=== PATIENT | male | born 1930 | race Caucasian/White ===

== ENCOUNTER 2016-11-24 17:10 | Inpatient (IN) | payer MEDICARE, BC, OTHER ==
[~2016-11-24] VITALS: Ht 165.1 cm; Wt 77.2 kg
[2016-11-24] MEDS ORDERED: FUROSEMIDE 100 MG/10 ML VIAL (J1940) IV ONE (17:15)
[2016-11-24 17:30] LABS: ABG BASE EXCESS 1.1 (-2.0-2.0); ABG HCO3 31.1 MEQ/L (22.0-26.0); ABG PARTIAL PRESSURE O2 90.4 mmHg (75.0-100.0); ABG STANDARD HCO3 25.4 MEQ/L (22.0-26.0); ABG TOTAL CO2 33.5 MEQ/L (23.0-31.0); ABG pH (ARTERIAL) 7.213 UNITS (7.350-7.450)
[2016-11-24] MEDS ORDERED: NITROGLYCERIN 2% OINT 1 GM *U/D* PKT TOP ONE (17:30)
[2016-11-24] MEDS ORDERED: FUROSEMIDE 100 MG/10 ML VIAL (J1940) IM ONE (17:30)
[2016-11-24] MEDS ORDERED: CLOP75TA2 PO (17:47)
[2016-11-24] MEDS ORDERED: LORA10TA2 PO (17:47)
[2016-11-24] MEDS ORDERED: DONEPEZIL (17:53)
[2016-11-24] MEDS ORDERED: FAMO1TAB11 PO (17:53)
[2016-11-24] MEDS ORDERED: MAGN400T5 PO (17:53)
[2016-11-24] MEDS ORDERED: SYST1SOL OU (17:53)
[2016-11-24] MEDS ORDERED: VITA100067 PO (17:53)
[2016-11-24] MEDS ORDERED: ECOT81TA5 PO (17:53)
[2016-11-24] MEDS ORDERED: ACET-683 PO (17:53)
--- NOTE | 2016-11-24 18:01 | REP ---
Chest two views HISTORY: Cough Comparison: 10/31/2014 Increased density is present in the lower lobes consistent with bibasilar atelectasis or infiltrates. Small bilateral pleural effusions are present greater on the right than on the left. The heart is normal in size. The pulmonary vasculature is normal in appearance. The bony structure is intact. IMPRESSION: 1. Bibasilar atelectasis or infiltrates 2. Small bilateral pleural effusions greater on the right than on the left. Signed by Jeronimo Moulton MD 11/24/2016 05:53 P
[2016-11-24 18:14] LABS: BASO % 0.2 % (0.0-1.0); EOS # 0.1 K/mm3 (0.0-0.50); EOS % 1.2 % (0.0-3.0); LARGE UNSTAINED CELL # 0.1 K/mm3 (0.0-0.4); LARGE UNSTAINED CELL % 0.5 % (0.0-4.0); LYMPH # 0.8 K/mm3 (1.5-4.5); LYMPH % 7.6 % (24.0-44.0); MEAN CORPUSCULAR HEMOGLOBIN 33.7 pg (27.0-33.0); MEAN CORPUSCULAR HGB CONC 31.8 g/dl (32.0-36.5); MEAN CORPUSCULAR VOLUME 106.1 fl (80.0-96.0); MONO # 0.5 K/mm3 (0.0-0.8); MONO % 4.8 % (0.0-5.0); NEUTROPHILS # 8.4 K/mm3 (1.8-7.7); NEUTROPHILS % 85.7 % (36.0-66.0); PLATELET COUNT, AUTOMATED 173 k/mm3 (150-450); RED CELL DISTRIBUTION WIDTH 13.3 % (11.5-14.5); WHITE BLOOD COUNT 9.8 K/mm3 (4.0-10.0)
[2016-11-24 18:39] LABS: ANION GAP 3 MEQ/L (8-16); BLOOD UREA NITROGEN 23 MG/DL (7-18); CALCIUM LEVEL 8.9 MG/DL (8.8-10.2); CARBON DIOXIDE LEVEL 38 MEQ/L (21-32); CHLORIDE LEVEL 105 MEQ/L (98-107); GLOMERULAR FILTRATION RATE > 60.0 (>35); GLUCOSE, FASTING 150 MG/DL (83-110); POTASSIUM SERUM 4.1 MEQ/L (3.5-5.1); SODIUM LEVEL 146 MEQ/L (136-145)
[2016-11-24 18:41] LABS: ABG BASE EXCESS 4.1 (-2.0-2.0); ABG HCO3 32.6 MEQ/L (22.0-26.0); ABG PARTIAL PRESSURE CO2 68.5 mmHg (35.0-45.0); ABG PARTIAL PRESSURE O2 99.6 mmHg (75.0-100.0); ABG STANDARD HCO3 28.1 MEQ/L (22.0-26.0); ABG TOTAL CO2 34.7 MEQ/L (23.0-31.0); ABG pH (ARTERIAL) 7.295 UNITS (7.350-7.450)
[2016-11-24 18:43] LABS: ALBUMIN 3.2 GM/DL (3.2-5.2); ALBUMIN/GLOBULIN RATIO 0.84 (1.00-1.93); BILIRUBIN,DIRECT 0.2 MG/DL (0.0-0.2); BILIRUBIN,TOTAL 0.4 MG/DL (0.2-1.0)
[2016-11-24] MEDS ORDERED: PIPERACILLIN/TAZOBACTAM SOD 4.5 GM in D5W MINI-BAG PLUS 50 ML IV ONE (19:00)
[2016-11-24] MEDS ORDERED: ARIC1TAB2 PO (19:40)
[2016-11-24] MEDS ORDERED: SENN1TAB10 PO (19:40)
[2016-11-24] MEDS ORDERED: VITA500T3 PO (19:40)
[2016-11-24] MEDS ORDERED: VITA400C5 PO (19:40)
[2016-11-24] MEDS ORDERED: B COTAB3 PO (19:40)
[2016-11-24] MEDS ORDERED: ASPI81TAEC PO (19:40)
[2016-11-24] MEDS ORDERED: VITA100066 PO (19:40)
[2016-11-24] MEDS ORDERED: DOCU100C16 PO (19:40)
[2016-11-24] MEDS ORDERED: ACET650T3 PO (19:40)
[2016-11-24] MEDS ORDERED: BISACODYL 10 MG SUPP PR PRN (20:15)
[2016-11-24] MEDS ORDERED: IPRATROPIUM 0.5MG/ALBUTEROL 2.5MG INH SOL UD 3ML (DUONEB)(J7620) NEB PRN (20:15)
[2016-11-24] MEDS ORDERED: POLYVINYL ALCOHOL OPHTH SOLN 15 ML(LIQUITEARS) OU PRN (20:15)
[2016-11-24] MEDS: HEPARIN SOD (PORCINE) 5000 UNITS/ML VIAL SC SCH (21:33)
--- NOTE | 2016-11-24 21:35 | HPE ---
DATE OF ADMISSION: 11/24/2016 PRIMARY CARE PROVIDER: RAKESH Hernandez CHIEF COMPLAINT: Shortness of breath and lethargy. HISTORY OF PRESENT ILLNESS: This is an 86-year-old male patient with underlying medical history of advanced dementia with aspiration. Is supposed to be on pureed diet with nectar thickened, aortic stenosis, history of left frontal cerebrovascular accident (CVA), right eye blindness, gastroesophageal reflux disease (GERD), history of transaminitis. As per family, yesterday the patient was eating some potato wedges, subsequently had a coughing spell and during the course of the night, the patient had shortness of breath and wheezy, and during the course of the day today, the patient was more sleepy than usual and with significant worsening shortness of breath, subsequently EMS was called to bring the patient to the hospital. Baseline the patient is wheelchair bound, with minimum verbal, with advanced dementia. As per family, the patient has been having swallowing problems and speech problem for the past year or two already and recently the patient has been getting worsening delirium at night with agitations and the patient's dementia is certainly getting worse as per family. Further history from patient is not possible. The patient denies any chest pain. No further history possible. Shearer catheter was placed in the ED. As per family, the patient has been refusing pureed food as well as nectar thickened fluids. Subsequently, regular fluids given to the patient. The patient also had a burger today for lunch. ALLERGIES: No known drug allergies. PAST MEDICAL HISTORY: Aortic stenosis. History of left frontal CVA. Right eye blindness. GERD. Transaminitis. PAST SURGICAL HISTORY: Bilateral inguinal hernia repair many years ago. FAMILY HISTORY: Noncontributory. SOCIAL HISTORY: Quit smoking in 1970s, does not drink alcoholic beverages. Lives at home with his who has been taking care of the patient. REVIEW OF SYSTEMS: Limited. The patient denies any chest pain. All other review of systems not possible. The patient currently is on BiPAP, pretty lethargic. HOME MEDICATIONS: - acetaminophen 650 mg by mouth twice a day - aspirin 81 mg by mouth daily - vitamin B complex by mouth daily - vitamin D 1000 units by mouth every pm - Plavix 75 mg by mouth every pm - vitamin B12 500 mcg by mouth every pm - Colace 100 mg by mouth every pm - Aricept 10 mg by mouth every pm - Pepcid 20 mg by mouth daily - loratadine 10 mg by mouth every pm - Systane eye drop four times a day as needed - senna 8.6 by mouth every pm PHYSICAL EXAMINATION: VITAL SIGNS: Temperature 97.7, pulse 88, respirations 20, blood pressure 184/63, pulse oximetry 90% on BiPAP. GENERAL: The patient lethargic, but arousable. Follows simple commands. HEENT: Normocephalic, atraumatic. PULMONARY: Diffuse rhonchi. CARDIAC: Regular, S1, S2. ABDOMEN: Soft, nontender, nondistended. Positive bowel sounds. EXTREMITIES: Trace edema bilateral lower extremities. NEUROLOGICAL: Cranial nerves II through XII grossly intact. Able to move all four extremities. LABORATORY: WBC 9.8. Hemoglobin and hematocrit 12.2/38.5, platelet 173. Chemistry: Sodium 146, potassium 4.1, chloride 105, bicarbonate 38, BUN 23, creatinine 0.9, lactic acid 1.6. X-ray shows bilateral pulmonary infiltrates. ASSESSMENT AND PLAN: This is an 86-year-old male patient with underlying medical history of aortic stenosis, left frontal CVA, right eye blindness, GERD, advanced dementia, transaminitis, history of aspiration, admitted for hypoxic hypercarbic respiratory failure. PROBLEM LIST: 1. Hypoxic hypercarbic respiratory failure secondary to aspiration pneumonia. The patient on Zosyn. X-ray appreciated. Followup cultures. C-reactive protein. Rule out CHF. The patient does not appear to be fluid overloaded, but was given Lasix. Will get echocardiogram to see ejection fraction history of grade 2 diastolic dysfunction. Will further assess. Continue Zosyn. Followup cultures. The patient on BiPAP, was 12/6, 50% FiO2. Will repeat ABGs. Advanced care planning. 2. Aspiration. Speech and swallow evaluation. Nothing by mouth for now. Holding oral medications. Pending speech and swallow. Code status has been discussed with the family. The family would like to wait until speech and swallow to decide regarding tube feeding. 3. History of CVA. Holding Plavix. Will continue aspirin if patient tolerates. Holding all other medications. Monitor blood pressure. 4. Hypertension. Likely secondary to acute stress. Holding oral medication. Will give blood pressure medication if patient needs to. 5. GERD. Continue proton pump inhibitor (PPI). 6. History of transaminitis. Currently resolved. 7. Advanced dementia. Supportive care. Poor overall prognosis. 8. Deep venous thrombosis (DVT) prophylaxis. Heparin subcutaneous. 9. Constipation. Dulcolax rectal suppository. DISPOSITION: Case discussed with Dr. Rollins. Poor overall prognosis. Patient DO NOT RESUSCITATE (DNR), DO NOT INTUBATE (DNI). Advanced care planning. 30 minutes spent discussing with the family, the medical order of life-sustaining treatment (MOLST) form and the prognosis of the patient. The patient is currently DNR, DNI with a trial of BiPAP. Family still deciding regarding tube feeding in the event the patient cannot tolerate anything oral. The family is aware of the poor prognosis. Time spent 30 minutes for advanced care planning.
[2016-11-25] VITALS (9 sets, daily range): BP systolic 92–147; BP diastolic 50–68; O2SAT 92–98
[2016-11-25] MEDS: IPRATROPIUM 0.5MG/ALBUTEROL 2.5MG INH SOL UD 3ML (DUONEB)(J7620) NEB SCH ×4 (01:46→19:25)
[2016-11-25] MEDS: PIPERACILLIN/TAZOBACTAM SOD 3.375 GM in D5W MINI-BAG PLUS 50 ML IV SCH ×3 (02:59→19:00)
[2016-11-25 04:41] LABS: MEAN CORPUSCULAR HEMOGLOBIN 33.9 pg (27.0-33.0); MEAN CORPUSCULAR HGB CONC 32.9 g/dl (32.0-36.5); MEAN CORPUSCULAR VOLUME 102.9 fl (80.0-96.0); WHITE BLOOD COUNT 11.3 K/mm3 (4.0-10.0)
[2016-11-25 04:55] LABS: ALBUMIN 2.8 GM/DL (3.2-5.2); ALBUMIN/GLOBULIN RATIO 0.72 (1.00-1.93); ALKALINE PHOSPHATASE 48 U/L (45-117); ALT/SGPT 13 U/L (12-78); ANION GAP 6 MEQ/L (8-16); AST/SGOT 16 U/L (15-37); BILIRUBIN,TOTAL 0.6 MG/DL (0.2-1.0); BLOOD UREA NITROGEN 20 MG/DL (7-18); CALCIUM LEVEL 8.1 MG/DL (8.8-10.2); CARBON DIOXIDE LEVEL 38 MEQ/L (21-32); CHLORIDE LEVEL 103 MEQ/L (98-107); CREATININE FOR GFR 1.06 MG/DL (0.70-1.30); GLOMERULAR FILTRATION RATE > 60.0 (>35); GLUCOSE, FASTING 118 MG/DL (83-110); MAGNESIUM LEVEL 1.7 MG/DL (1.8-2.4); POTASSIUM SERUM 3.8 MEQ/L (3.5-5.1); SODIUM LEVEL 147 MEQ/L (136-145); TOTAL PROTEIN 6.7 GM/DL (6.4-8.2)
[2016-11-25 05:59] LABS: ABG BASE EXCESS 10.2 (-2.0-2.0); ABG HCO3 35.8 MEQ/L (22.0-26.0); ABG PARTIAL PRESSURE CO2 53.3 mmHg (35.0-45.0); ABG PARTIAL PRESSURE O2 188.5 mmHg (75.0-100.0); ABG TOTAL CO2 37.4 MEQ/L (23.0-31.0); ABG pH (ARTERIAL) 7.445 UNITS (7.350-7.450)
[2016-11-25] MEDS: HEPARIN SOD (PORCINE) 5000 UNITS/ML VIAL SC SCH ×3 (06:01→22:11)
[2016-11-25] MEDS: ASPIRIN 81 MG ENTERIC TAB PO SCH (09:00)
--- NOTE | 2016-11-25 20:49 | ECGEPIP ---
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 Electronically Signed On 11-25-2016 20:49:48 EDT by Octavio Tavares
--- NOTE | 2016-11-25 20:52 | ECGEPIP ---
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
[2016-11-26] VITALS: BP 145/65
[2016-11-26] MEDS: IPRATROPIUM 0.5MG/ALBUTEROL 2.5MG INH SOL UD 3ML (DUONEB)(J7620) NEB SCH ×4 (01:17→20:00)
[2016-11-26 02:00] VITALS: BP 110/58
[2016-11-26] MEDS: PIPERACILLIN/TAZOBACTAM SOD 3.375 GM in D5W MINI-BAG PLUS 50 ML IV SCH ×3 (03:38→18:50)
[2016-11-26 04:00] VITALS: BP 132/62
[2016-11-26 05:25] LABS: MEAN CORPUSCULAR HEMOGLOBIN 33.9 pg (27.0-33.0); MEAN CORPUSCULAR HGB CONC 33.4 g/dl (32.0-36.5); MEAN CORPUSCULAR VOLUME 101.7 fl (80.0-96.0); RED CELL DISTRIBUTION WIDTH 13.3 % (11.5-14.5); WHITE BLOOD COUNT 5.7 K/mm3 (4.0-10.0)
[2016-11-26 05:52] LABS: ALBUMIN 2.7 GM/DL (3.2-5.2); ALBUMIN/GLOBULIN RATIO 0.79 (1.00-1.93); ALKALINE PHOSPHATASE 46 U/L (45-117); ALT/SGPT 13 U/L (12-78); ANION GAP 4 MEQ/L (8-16); AST/SGOT 15 U/L (15-37); BILIRUBIN,TOTAL 0.7 MG/DL (0.2-1.0); BLOOD UREA NITROGEN 24 MG/DL (7-18); CALCIUM LEVEL 7.9 MG/DL (8.8-10.2); CARBON DIOXIDE LEVEL 37 MEQ/L (21-32); CHLORIDE LEVEL 105 MEQ/L (98-107); CREATININE FOR GFR 0.86 MG/DL (0.70-1.30); GLOMERULAR FILTRATION RATE > 60.0 (>35); GLUCOSE, FASTING 83 MG/DL (83-110); MAGNESIUM LEVEL 1.8 MG/DL (1.8-2.4); POTASSIUM SERUM 4.1 MEQ/L (3.5-5.1); SODIUM LEVEL 146 MEQ/L (136-145); TOTAL PROTEIN 6.1 GM/DL (6.4-8.2)
--- NOTE | 2016-11-26 05:58 | ECGEPIP ---
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
[2016-11-26 06:00] VITALS: BP 129/59
[2016-11-26] MEDS: HEPARIN SOD (PORCINE) 5000 UNITS/ML VIAL SC SCH ×3 (06:20→20:52)
[2016-11-26 08:00] VITALS: BP 139/61
[2016-11-26] MEDS: ASPIRIN 81 MG ENTERIC TAB PO SCH (11:27)
[2016-11-26] MEDS: D5W/0.45% SODIUM CHLORIDE 1,000 ML IV SCH ×2 (11:27→20:54)
[2016-11-26 12:00] VITALS: BP 127/56
[2016-11-27] MEDS: IPRATROPIUM 0.5MG/ALBUTEROL 2.5MG INH SOL UD 3ML (DUONEB)(J7620) NEB SCH ×4 (02:00→19:40)
[2016-11-27] MEDS: CIPROFLOXACIN 500 MG TAB PO SCH ×2 (05:32→17:44)
[2016-11-27] MEDS: HEPARIN SOD (PORCINE) 5000 UNITS/ML VIAL SC SCH (05:33)
[2016-11-27 06:00] VITALS: BP 154/65
[2016-11-27] MEDS ORDERED: metroNIDAZOLE (FLAGYL) 500 MG TAB PO SCH (06:00)
[2016-11-27 06:18] LABS: MEAN CORPUSCULAR HEMOGLOBIN 33.4 pg (27.0-33.0); MEAN CORPUSCULAR HGB CONC 32.7 g/dl (32.0-36.5); MEAN CORPUSCULAR VOLUME 102.2 fl (80.0-96.0); RED CELL DISTRIBUTION WIDTH 13.2 % (11.5-14.5); WHITE BLOOD COUNT 6.7 K/mm3 (4.0-10.0)
[2016-11-27 06:54] LABS: ALBUMIN 2.6 GM/DL (3.2-5.2); ALBUMIN/GLOBULIN RATIO 0.67 (1.00-1.93); ALKALINE PHOSPHATASE 42 U/L (45-117); ALT/SGPT 14 U/L (12-78); ANION GAP 3 MEQ/L (8-16); AST/SGOT 20 U/L (15-37); BILIRUBIN,TOTAL 0.6 MG/DL (0.2-1.0); BLOOD UREA NITROGEN 24 MG/DL (7-18); CALCIUM LEVEL 8.4 MG/DL (8.8-10.2); CARBON DIOXIDE LEVEL 37 MEQ/L (21-32); CHLORIDE LEVEL 104 MEQ/L (98-107); CREATININE FOR GFR 0.77 MG/DL (0.70-1.30); GLOMERULAR FILTRATION RATE > 60.0 (>35); GLUCOSE, FASTING 89 MG/DL (83-110); MAGNESIUM LEVEL 1.9 MG/DL (1.8-2.4); POTASSIUM SERUM 3.9 MEQ/L (3.5-5.1); SODIUM LEVEL 144 MEQ/L (136-145); TOTAL PROTEIN 6.5 GM/DL (6.4-8.2)
--- NOTE | 2016-11-27 09:11 | IPN ---
DATE: This is an 86-year-old gentleman seen at bedside. He is pleasantly confused. No pertinent complaints. No overnight issues. His brother is present at bedside and we did have a discussion regarding the patient's issues with aspirating and likely recurrent pneumonia. OBJECTIVE: Temperature 98.3, pulse 62, respiratory rate 89, blood pressure (BP) 127/56, SPO2 is 95% on 4 liters. General: The patient appears to be in no acute distress. HEENT: Unremarkable. Lungs: Diminished bibasilar breath sounds. Heart: Regular rate and rhythm. Abdomen: Soft. Extremities: No edema. No calf tenderness. LABORATORIES: White count 6.7, hemoglobin 11.4, platelets 153,000. Sodium 144, potassium 3.9, chloride 104, bicarb 37, anion gap 3, BUN is 24, creatinine is 0.77, glucose is 89, magnesium 1.9, AST 20, ALT 14, alkaline phosphatase 42. ASSESSMENT/PLAN: 1. Aspiration pneumonia. Continue with antibiotics. Blood cultures were negative. We are to have a kristal discussion with the family today regarding advanced directives. My understanding is that they would not at this point want a feeding tube placed. They understand that Mr. Monk is at risk for continued aspiration and complications. 2. Advanced dementia. Will frame the discussion regarding end-of-life decisions as outlined above. 3. History of CVA. Will continue on aspirin. Holding his Plavix. Monitor his blood pressure. 4. Hypertension. Will continue to follow 5. Gastroesophageal reflux disease (GERD). Stable on proton pump inhibitor (PPI). 6. History of transaminitis, resolved. 7. Advanced dementia as outlined. 8. Bowel regimen. 9. Deep vein thrombosis (DVT) prophylaxis, subcutaneous heparin. DISPOSITION: The patient remains DO NOT RESUSCITATE (DNR)/DO NOT INTUBATE (DNI). Advanced care planning will be discussed again with the family present to determine whether or not we need to consider comfort measures only ([facility]) and home with hospice.
[2016-11-27] MEDS: ASPIRIN 81 MG ENTERIC TAB PO SCH (10:09)
[2016-11-27] MEDS ORDERED: HYOSCYAMINE SULFATE 0.125 MG SUBL TABLET SL PRN (12:15)
[2016-11-27] MEDS ORDERED: MORPHINE 10MG/0.5ML ORAL CONCENTRATE SOLUTION U/D SL PRN (12:15)
[2016-11-27] MEDS ORDERED: ACETAMINOPHEN TAB 650MG DOSE (2X325MG) PO PRN (12:15)
[2016-11-27] MEDS ORDERED: LORazepam 1 MG TAB PO PRN (12:15)
[2016-11-27] MEDS ORDERED: MORPHINE SULFATE ORAL SOLN 10 MG/5 ML UD SL PRN (12:17)
--- NOTE | 2016-11-27 12:24 | IPN ---
DATE: 11/27/2016 I did have an opportunity to have a follow-up conversation with the patient's who is the healthcare proxy and two daughters who are nurses who were present at bedside as well. We reviewed the patient's labs, swallow evaluation and had a discussion regarding where we are at with end-of-life decisions. The discussion did include updating the medical orders for life-sustaining treatment (MOLST) form to include DO NOT RESUSCITATE (DNR)/DO NOT INTUBATE (DNI), comfort measures only, do not send to hospital unless symptoms or pain becomes too severe to control at home, and no feeding tube, no IV fluids. Antibiotic use is to be determined based on the need. We did discuss perhaps switching him to an oral antibiotic to help suppress the infection with the aspiration pneumonia with the goal of trying to get him home next week, perhaps Tuesday or Tuesday with hospice. There will still need to be some coordination at the beginning of the week, perhaps on Tuesday, since this is a holiday weekend, and the goal was to try to get him home with hospice on Tuesday. He will likely need the prescriptions to be sent in to include the hospice medications as well as oral antibiotic. We did discuss his home medications; in particular, Plavix and aspirin, which I did advocate that we go ahead and stop any other medications, although Tylenol might be advisable if he should develop fever and need to be treated for symptoms of fever. All questions were answered at bedside. MOLST form was updated, signed and placed on the chart. Orders will be updated to reflect comfort measures only. Time spent with the family was 13 minutes.
[2016-11-28] MEDS: IPRATROPIUM 0.5MG/ALBUTEROL 2.5MG INH SOL UD 3ML (DUONEB)(J7620) NEB SCH ×4 (02:00→19:59)
[2016-11-28] MEDS: CIPROFLOXACIN 500 MG TAB PO SCH ×2 (05:15→18:34)
[2016-11-28] MEDS: SENNA 8.6 MG TAB (SENOKOT) PO SCH ×2 (10:55→21:00)
[2016-11-29] MEDS: IPRATROPIUM 0.5MG/ALBUTEROL 2.5MG INH SOL UD 3ML (DUONEB)(J7620) NEB SCH ×4 (01:23→19:07)
[2016-11-29] MEDS: CIPROFLOXACIN 500 MG TAB PO SCH ×2 (05:57→18:27)
[2016-11-29] MEDS: SENNA 8.6 MG TAB (SENOKOT) PO SCH ×2 (08:37→20:00)
[2016-11-30] MEDS: CIPROFLOXACIN 500 MG TAB PO SCH ×2 (05:20→17:35)
[2016-11-30] MEDS: IPRATROPIUM 0.5MG/ALBUTEROL 2.5MG INH SOL UD 3ML (DUONEB)(J7620) NEB SCH ×4 (08:00→20:11)
[2016-11-30] MEDS: SENNA 8.6 MG TAB (SENOKOT) PO SCH ×2 (08:15→20:26)
[2016-12-01] MEDS: CIPROFLOXACIN 500 MG TAB PO SCH (05:09)
[2016-12-01] MEDS ORDERED: CIPR-249 PO (08:20)
[2016-12-01] MEDS: SENNA 8.6 MG TAB (SENOKOT) PO SCH (09:17)
[2016-12-01] MEDS ORDERED: LORA0.5T11 PO (09:37)
[2016-12-01] MEDS ORDERED: HYOS125TA PO (09:37)
[2016-12-01] MEDS ORDERED: MORP20SO3 PO (09:37)
--- NOTE | 2016-12-01 19:04 | DSES ---
DATE OF ADMISSION: 11/24/2016 DATE OF DISCHARGE: 12/01/2016 DISCHARGE DIAGNOSIS: Aspiration pneumonia. SECONDARY DIAGNOSES: 1. Advanced dementia. 2. History of cerebrovascular accident. 3. Hypertension. 4. Gastroesophageal reflux disease. 5. Hepatitis. 6. Constipation. HOSPITAL COURSE: Patient is an 86-year-old man who initially presented with aspiration pneumonia. He was admitted to the medical service and treated aggressively with antibiotics. Lengthy discussions were had with the patient, who had limited ability to understand his situation. Eventually the patient and the family all elected for comfort measures only and for the DO NOT RESUSCITATE, DO NOT INTUBATE status. Patient was evaluated by hospice and was accepted into home hospice. At this time the patient is being discharged home with hospice. SUBJECTIVE: Today the patient reports he is feeling well and has no complaints. He is enjoying his breakfast and is eager to go home. PHYSICAL EXAMINATION: Deferred as the patient is on comfort measures only. No recent laboratory studies or imaging. ASSESSMENT AND PLAN: This is an 86-year-old man with advanced dementia who had been treated for aspiration pneumonia. He is in the process of completing a course of antibiotics for his aspiration pneumonia. He did improve back to his practical baseline; however, he is still a high aspiration risk. Knowing this, the patient and family have elected for comfort measures only and home hospice, which has been established. When I visited the bedside this morning, all questions were answered to the patient's and family's satisfaction. They understand hospice, and that the patient will not be brought back to the hospital, and that they will contact hospice should they have any problems. DISPOSITION: The patient is being discharged home with hospice. His activity is as tolerated. His diet is as tolerated. He is to followup with home hospice today. He is DO NOT RESUSCITATE, DO NOT INTUBATE, comfort measures only. MEDICATION AT THE TIME OF DISCHARGE: - ciprofloxacin 500 mg by mouth twice a day for 3 additional days - hyoscyamine 0.125 mg every 4 hours as needed for terminal secretions - lorazepam 0.5 mg every 4 hours as needed for anxiety or agitation - morphine sulfate 0.25-1 mL every 2 hours as needed for pain or dyspnea - acetaminophen extended release 650 mg twice a day - docusate 100 mg every evening - Pepcid 20 mg daily - loratadine 10 mg every evening - Systane eye drops one drop each eye four times daily as needed for dry eyes - Senalax 8.6 mg, four tablets every evening, taken with applesauce Less than 30 minutes spent organizing disposition.
== END 2016-12-01 12:00 | disposition hospice, home (50) | DRG 177 ==
LOC: M ED 17:10 → EDBD 17:10 → M ED INP 20:14 → M ICU 11-25 02:23 → M MSPAV 11-26 19:50
PROVIDERS: ADMIT Hospitalist; ATTEND Internal Medicine
DX: J69.0 Pneumonitis due to inhalation of food and vomit (principal); J96.92 Respiratory failure, unspecified with hypercapnia; J96.91 Respiratory failure, unspecified with hypoxia; E87.0 Hyperosmolality and hypernatremia; Z66 Do not resuscitate; Z51.5 Encounter for palliative care; F03.90 Unspecified dementia, unspecified severity, without behavioral disturbance, psychotic disturbance, mood disturbance, and anxiety; Z86.73 Personal history of transient ischemic attack (TIA), and cerebral infarction without residual deficits; H54.41 Blindness, right eye, normal vision left eye; K21.9 Gastro-esophageal reflux disease without esophagitis; Z87.891 Personal history of nicotine dependence; Z79.82 Long term (current) use of aspirin; Z79.02 Long term (current) use of antithrombotics/antiplatelets; K59.00 Constipation, unspecified